=== PATIENT | female | born 1960 | race Caucasian/White ===

== ENCOUNTER 2021-08-08 18:54 | Emergency (ER) | payer OTHER ==
[~2021-08-08] VITALS: Ht 160 cm; Wt 65.8 kg
[~2021-08-08 18:54] MED LIST: ATORVASTATIN CA10 MG PO; BACTRIM DS TAB1 EAC1; PREMARIN0.3 MG PO; VENLAFAXINE HCL25 MG PO; VICODIN 5-3001 EACH PO
[2021-08-08] MEDS ORDERED: HYDROCODONE (19:07)
[2021-08-08 21:30] VITALS: BP 130/75
== END 2021-08-08 21:33 | disposition left against medical advice (07) ==
LOC: M.ERS 18:54
DX: L02.01 Cutaneous abscess of face (principal); M54.30 Sciatica, unspecified side; Z79.899 Other long term (current) drug therapy; Z88.1 Allergy status to other antibiotic agents